=== PATIENT | female | born 1975 | race Caucasian/White ===

== ENCOUNTER → 2017-05-23 | Outpatient (CLI) | payer BC ==
--- NOTE | 2017-05-25 08:52 | MAM ---
EXAM DESCRIPTION: 3D Screening BILATERAL CLINICAL HISTORY: 42 yearsFemaleSCREENING . History of ovarian cancer. No breast cancer self or family. Postmenopausal. HRT five or more years ago.. COMPARISON: Diagnostic digital 2-D bilateral mammography 09/21/2015.. No prior reports available. TECHNIQUE: Bilateral CC and MLO projection full-field images, 3-D tomosynthesis digital mammographic technique. Also bilateral synthesized CC/ MLO full-field images. CAD not utilized. FINDINGS: The breast parenchymal density pattern is: Scattered areas of fibroglandular density. No skin thickening or nipple retraction intramammary lymph nodes. Right axillary node. No focal, stellate mass or density, focal asymmetry , and no suspicious microcalcifications bilaterally. Stable mammograms compared to prior study, taking into account differences in mammographic technique IMPRESSION: BI-RADS CATEGORY: 2 - BENIGN FINDINGS. FOLLOW UP: Routine digital bilateral screening, one year interval from May 2017 Written communication explaining the findings and follow-up, will be mailed to the patient and referring health care provider. According to the [employer], yearly mammograms are recommended starting at age 40 and continuing as long as a woman is in good health. Any breast change noted on a breast self-exam should be reported promptly to the patient's healthcare provider. Breast MRI is recommended for women with an approximately 20-25% or greater lifetime risk of breast cancer, including women with a strong family history of breast or ovarian cancer and women who have been treated for Hodgkin's disease. A negative mammographic report should not delay tissue diagnosis in patients with significant clinical history or physical findings. Extremely dense breast tissue limits the sensitivity of digital mammography. Electronically signed by: Osito Duong MD 05/25/2017 8:50 AM CDT
== END ==
LOC: MAMMO 16:00
PROVIDERS: ATTEND Nurse Practitioner Family
DX: Z12.31 Encounter for screening mammogram for malignant neoplasm of breast (principal)
CPT/HCPCS: 77063; G0202

== ENCOUNTER 2019-03-31 18:01 | Emergency (ER) | payer BC ==
[2019-03-31 18:16] VITALS: TEMP 97.8
--- NOTE | 2019-03-31 18:40 | RAD ---
EXAM DESCRIPTION: Wrist,Left 3 Views CLINICAL HISTORY: 44 years Female Fall COMPARISON: None TECHNIQUE: Three images of the left wrist were obtained. FINDINGS: Fractures distal radius. There is involvement of the articular surface. No fractures distal ulna. Erosive changes ulnar styloid. Intact carpal bones. IMPRESSION: Nondisplaced fractures distal radius. Electronically signed by: Hillary Richardson MD 03/31/2019 6:38 PM CDT
[2019-03-31] MEDS ORDERED: HYDROcodone 10MG/APAP 325MG 1 EA TAB PO ONE (18:47)
--- NOTE | 2019-03-31 18:51 | ED.PDOC ---
History of Present Illness - General Chief Complaint: Upper Extremity Injury Time Seen by Provider: 03/31/19 18:42 Source: patient Exam Limitations: no limitations - History of Present Illness Initial Comments: Patient presents with left wrist pain after FOSH. Pain is lateral, constant, throbbing, worse with movement, better with rest, no previous episodes. No other complaints. Timing/Duration: 1/2 hour Severity: moderate Improving Factors: rest Worsening Factors: movement Associated Symptoms: denies symptoms Allergies/Adverse Reactions: Allergies Penicillins Allergy (Verified 12/30/14 12:33) Home Medications: Ambulatory Orders ALPRAZolam [Xanax] 1 mg PO BEDTIME 12/30/14 Citalopram Hydrobromide [Celexa] 10 mg PO BEDTIME 12/30/14 Famotidine [Pepcid AC] 10 mg PO BEDTIME 12/30/14 HYDROcodone 10MG/APAP 325MG [[place] 10/325] 1 ea PO Q4H PRN 12/30/14 Lisinopril & Hydrochlorothiazi [Lisinopril/Hctz 20-12.5 mg] 1 tab PO BEDTIME 12/30/14 Meloxicam 15 mg PO BEDTIME 12/30/14 Nicotine [Nicoderm Cq] 21 mg TD DAILY 12/30/14 Ranitidine HCl 150 mg PO BEDTIME 12/30/14 Sulfa/Trimeth 800/160 (Ds) Tab [Bactrim DS] 1 ea PO BEDTIME 12/30/14 Doxycycline Hyclate 100 mg PO BID #20 tab 01/02/15 Levothyroxine Sodium [Synthroid] 0.025 mg PO 0700 #30 tab 01/02/15 Simvastatin 10 mg PO BEDTIME #30 tab 01/02/15 levoFLOXacin [Levaquin] 500 mg PO DAILY #10 tab 01/02/15 Ondansetron [Zofran Odt] 4 mg PO BID PRN #7 tab 09/15/15 Acetaminophen W/ Codeine [Tylenol W/ CODEINE #3] 1 ea PO Q6HRS PRN #15 03/31/19 Review of Systems - Review of Systems Constitutional: States: no symptoms reported EENTM: States: no symptoms reported Respiratory: States: no symptoms reported Cardiology: States: no symptoms reported Gastrointestinal/Abdominal: States: no symptoms reported Genitourinary: States: no symptoms reported Musculoskeletal: States: see HPI Skin: States: no symptoms reported Neurological: States: no symptoms reported Endocrine: States: no symptoms reported Hematologic/Lymphatic: States: no symptoms reported Past Medical History (General) - Patient Medical History Hx Seizures: Yes Hx Stroke: Yes Hx Asthma: Yes Hx Hypertension: Yes Hx Thyroid Disease: Yes Hx Diabetes: No Hx Gastroesophageal Reflux: Yes Hx Cancer: Yes - ovarian Hx Hepatitis C: No Hx MRSA: Yes MRSA Source:: Wound - Vaccination History Hx Tetanus, Diphtheria Vaccination: No Hx Influenza Vaccination: No - Social History Hx Tobacco Use: Yes Hx Alcohol Use: Yes - occ. Hx Physical Abuse: No Hx Emotional Abuse: No Hx Suspected Abuse: No Family Medical History - Family History Mother Hx Family Hypertension: Yes Hx Cardiac Disease: Yes Hx Family Diabetes: Yes Physical Exam - Physical Exam General Appearance: Alert Respiratory: lungs clear, normal breath sounds Cardiovascular/Chest: normal peripheral pulses, regular rate, rhythm Peripheral Pulses: radial,right: 2+, radial,left: 2+ Gastrointestinal/Abdominal: normal bowel sounds, non tender, soft Extremity: other - lateral left wrist is TTP with bulging deformity. Capillary refill less than 2 seconds at the nail beds. Full sensation throughout the entire left hand and wrist. Progress - Progress Progress: 03/31/19 19:49 Radiographs of the left wrist showed a non-displaced fracture of the left distal radius. Patient denied any current alcohol or drug use. Patient was given hydrocodone 10/325 po x one. Left arm splinted with a sugar tong splint and sling provided. Care instructions given. E.R. warnings given. Questions were elicited and answered. Patient voiced understanding and agreement with the plan. Departure - Departure Clinical Impression: Radius distal fracture Disposition: Discharge to Home or Self Care Condition: Good Departure Forms: ED Discharge - Pt. Copy, Patient Portal Self Enrollment Instructions: Radius Fracture (DC) Diet: resume usual diet Activity: other - do not use the left arm until told otherwise by a doctor. Referrals: CARMEN CHANG IV, NP [Primary Care Provider] - 1-2 Weeks Prescriptions: Acetaminophen W/ Codeine [Tylenol W/ CODEINE #3] 1 ea PO Q6HRS PRN #15 PRN Reason: Pain Home Medications: Ambulatory Orders ALPRAZolam [Xanax] 1 mg PO BEDTIME 12/30/14 Citalopram Hydrobromide [Celexa] 10 mg PO BEDTIME 12/30/14 Famotidine [Pepcid AC] 10 mg PO BEDTIME 12/30/14 HYDROcodone 10MG/APAP 325MG [[place] 10/325] 1 ea PO Q4H PRN 12/30/14 Lisinopril & Hydrochlorothiazi [Lisinopril/Hctz 20-12.5 mg] 1 tab PO BEDTIME 12/30/14 Meloxicam 15 mg PO BEDTIME 12/30/14 Nicotine [Nicoderm Cq] 21 mg TD DAILY 12/30/14 Ranitidine HCl 150 mg PO BEDTIME 12/30/14 Sulfa/Trimeth 800/160 (Ds) Tab [Bactrim DS] 1 ea PO BEDTIME 12/30/14 Doxycycline Hyclate 100 mg PO BID #20 tab 01/02/15 Levothyroxine Sodium [Synthroid] 0.025 mg PO 0700 #30 tab 01/02/15 Simvastatin 10 mg PO BEDTIME #30 tab 01/02/15 levoFLOXacin [Levaquin] 500 mg PO DAILY #10 tab 01/02/15 Ondansetron [Zofran Odt] 4 mg PO BID PRN #7 tab 09/15/15 Acetaminophen W/ Codeine [Tylenol W/ CODEINE #3] 1 ea PO Q6HRS PRN #15 03/31/19 Additional Instructions: Call Dr. Luevano's office in the morning and get an appointment for or monday. Return to the E.R. for numbness in the left hand or pale fingernails on the left hand.
[2019-03-31 19:57] VITALS: BP 130/80; O2SAT 97
== END 2019-03-31 20:00 | disposition home or self-care (01) ==
LOC: ER 18:01
DX: S52.502A Unspecified fracture of the lower end of left radius, initial encounter for closed fracture (principal); R56.9 Unspecified convulsions; J45.909 Unspecified asthma, uncomplicated; I10 Essential (primary) hypertension; E07.9 Disorder of thyroid, unspecified; K21.9 Gastro-esophageal reflux disease without esophagitis; Z85.43 Personal history of malignant neoplasm of ovary; Z79.899 Other long term (current) drug therapy; Z86.73 Personal history of transient ischemic attack (TIA), and cerebral infarction without residual deficits; Z88.0 Allergy status to penicillin; W18.30XA Fall on same level, unspecified, initial encounter; Y92.9 Unspecified place or not applicable

== ENCOUNTER → 2019-04-18 | Outpatient (CLI) | payer BC ==
--- NOTE | 2019-04-18 11:22 | RAD ---
PROVIDED CLINICAL HISTORY/REASON FOR EXAM: M25.532 Findings: Number of images: 3 Location: Left wrist No acute fracture or dislocation. Joint spaces are maintained. Soft tissues are unremarkable. The previously described nondisplaced fractures of the distal radius are less apparent. IMPRESSION: No evidence of acute process in the left wrist. Previously described nondisplaced fractures of the distal radius are less apparent, which may indicate healing. Electronically signed by: Chet Espinoza MD 04/18/2019 11:20 AM CDT
== END ==
LOC: RAD 08:15
PROVIDERS: ATTEND Orthopaedic Surgery
DX: S52.502D Unspecified fracture of the lower end of left radius, subsequent encounter for closed fracture with routine healing (principal)

== ENCOUNTER → 2019-05-09 | Outpatient (CLI) | payer BC ==
--- NOTE | 2019-05-09 08:40 | RAD ---
EXAM DESCRIPTION: Wrist,Left 3 Views CLINICAL HISTORY: 44 years, Female, FX DISTAL END OF RADIUS COMPARISON: None FINDINGS: Left wrist 3 x-ray views is positive for linear fracture of the epiphysis of the distal left radius extending into the radiocarpal joint which is unchanged in alignment compared to the previous study. Slight widening of the fracture line is thought to be resorption related to early stages of healing. Other bones in the field of view appear intact. Carpal relationships are well-maintained. Distal ulna appears intact. Normal metacarpals. No significant arthritic changes are observed. IMPRESSION: Unchanged alignment of fractured distal left radius. Electronically signed by: Long Hernandez MD 05/09/2019 8:39 AM CDT
== END ==
LOC: RAD 07:10
PROVIDERS: ATTEND Orthopaedic Surgery
DX: S52.502D Unspecified fracture of the lower end of left radius, subsequent encounter for closed fracture with routine healing (principal)

== ENCOUNTER → 2019-05-31 | Outpatient (CLI) | payer BC ==
--- NOTE | 2019-06-01 11:12 | RAD ---
EXAM DESCRIPTION: Wrist,Left 3 Views: CR/DR/XR CLINICAL HISTORY: 44 years Female CLOSED FX OF DISTAL END OF RADIUS COMPARISON: Left wrist 05/09/2019. TECHNIQUE: 3 VIEWS AP. Lateral. Oblique. The left wrist. Impression: Linear fracture extension into the radiolunate joint is less radiolucent and well-defined compared to the prior study. Fracture components are stable. Radiocarpal joint spaces are maintained. No abnormal fragments in the soft tissues. Electronically signed by: Osito Duong MD 06/01/2019 11:11 AM CDT
== END ==
LOC: RAD 07:26
PROVIDERS: ATTEND Orthopaedic Surgery
DX: S52.502D Unspecified fracture of the lower end of left radius, subsequent encounter for closed fracture with routine healing (principal)

== ENCOUNTER 2019-12-01 17:05 | Emergency (ER) | payer BC ==
[2019-12-01 17:32] VITALS: TEMP 98.7
[2019-12-01] MEDS ORDERED: SODIUM CHLORIDE 0.9% 1000ML 1,000 ML IVS ONE (17:43)
[2019-12-01] MEDS ORDERED: DICYCLOMINE HCL INJ 20 MG/2 ML AMP IM ONE (17:43)
--- NOTE | 2019-12-01 19:10 | CT ---
PROCEDURE: CT Abdomen and Pelvis With Intravenous Contrast CLINICAL INDICATION: The patient is 44 years old and is Female; pain TECHNIQUE: Axial computed tomography images of the abdomen and pelvis with intravenous contrast. Sagittal and coronal reformatted images were created and reviewed. This CT exam was performed using one or more of the following dose reduction techniques: automated exposure control, adjustment of the mA and/or kV according to patient size, and/or use of iterative reconstruction technique. DLP: 826 mGy*cm COMPARISON: None. FINDINGS: LUNG BASES: Bibasilar scarring and/or atelectasis. No focal consolidation. MEDIASTINUM: Small hiatal hernia. ABDOMEN: LIVER: Diffuse hepatic steatosis. GALLBLADDER AND BILE DUCTS: Prior cholecystectomy. No ductal dilation. PANCREAS: Unremarkable. No mass. No ductal dilation. SPLEEN: Unremarkable. No splenomegaly. ADRENALS: Unremarkable. No mass. KIDNEYS AND URETERS: Unremarkable. No solid mass. No hydronephrosis. STOMACH AND BOWEL: Epigastric postsurgical changes most suggestive of Jory-en-Y gastric bypass. No obstruction. No mucosal thickening. PELVIS: APPENDIX: Appendix is surgically absent. BLADDER: Bladder is decompressed. REPRODUCTIVE: Unremarkable as visualized. ABDOMEN and PELVIS: INTRAPERITONEAL SPACE: Unremarkable. No free air. No significant fluid collection. BONES/JOINTS: Levoscoliosis of the lumbar spine No acute fracture. No dislocation. SOFT TISSUES: Unremarkable. VASCULATURE: Unremarkable. No abdominal aortic aneurysm. LYMPH NODES: Unremarkable. No enlarged lymph nodes. IMPRESSION: 1. No acute abdominal or pelvic abnormality. 2. Epigastric postsurgical changes most suggestive of Jory-en-Y gastric bypass. No obstruction. 3. Diffuse hepatic steatosis. Electronically signed by: Chuckie Fu DO 12/01/2019 7:09 PM CDT
--- NOTE | 2019-12-01 19:30 | ED.PDOC ---
History of Present Illness - General Chief Complaint: Abdominal Pain Stated Complaint: L sided adbominal pain Time Seen by Provider: 12/01/19 17:40 - History of Present Illness Initial Comments: Pt had a gastric bypass surgery 5 weeks back , was doing good for 1 week then started having LUQ pain with some constipation , did take some otc meds for constipation got better initially but then again having LUQ pain and constipation. Past Medical History (General) - Patient Medical History Hx Seizures: Yes Hx Stroke: Yes - TIA Hx Asthma: Yes Hx of COPD: Yes Hx Cardiac Disorders: No Hx Hypertension: Yes Hx Thyroid Disease: Yes Hx Diabetes: No Hx Gastroesophageal Reflux: Yes Hx Cancer: Yes - Ovarian Hx Hepatitis C: No Hx MRSA: Yes MRSA Source:: Wound Surgical History: appendectomy, cancer surgery, cholecystectomy, gastric bypass, tonsillectomy, Hysterectomy, other - Vaccination History Hx Tetanus, Diphtheria Vaccination: No Hx Influenza Vaccination: No Hx Pneumococcal Vaccination: No - Social History Hx Tobacco Use: Yes Hx Alcohol Use: No Hx Substance Use: No Hx Substance Use Treatment: No Hx Depression: No Hx Physical Abuse: No Hx Emotional Abuse: No Hx Suspected Abuse: No - Female History Patient is a Female of Child Bearing Age (10 -59 yrs old): Yes Patient : No - Hyst Family Medical History - Family History Mother Living Status: Still Living Hx Family Hypertension: Yes Hx Cardiac Disease: Yes Hx Family Diabetes: Yes Physical Exam - Physical Exam General Appearance: Alert, Comfortable Eyes, Ears, Nose, Throat Exam: PERRL/EOMI Neck: non-tender, full range of motion, supple, normal inspection Respiratory: chest non-tender, lungs clear, normal breath sounds, no respiratory distress, no accessory muscle use Cardiovascular/Chest: regular rate, rhythm, no edema, no gallop, no JVD, no murmur Gastrointestinal/Abdominal: soft, no organomegaly, no pulsatile mass, tenderness - LUQ Back Exam: normal inspection Extremity: non-tender, normal inspection, no pedal edema Neurologic: no motor/sensory deficits, alert, normal mood/affect, oriented x 3 Lymphatic: no adenopathy Progress - Results/Orders Results/Orders: 12/01/19 17:41 Hold Metformin x 48Hrs [id number] Laboratory Results WBC 8.6 K/mm3 (4.8-10.8) 12/01/19 17:40 RBC 4.85 M/mm3 (4.20-5.40) 12/01/19 17:40 Hgb 14.4 gm/dL (12.0-16.0) 12/01/19 17:40 Hct 42.7 % (36.0-47.0) 12/01/19 17:40 MCV 88.1 fl (81.0-99.0) 12/01/19 17:40 MCH 29.8 pg (27.0-31.0) 12/01/19 17:40 MCHC 33.8 g/dL (33.0-37.0) 12/01/19 17:40 RDW 14.6 % (11.5-14.5) H 12/01/19 17:40 Plt Count 298 K/mm3 (130-400) 12/01/19 17:40 MPV 8.9 fl (7.40-10.4) 12/01/19 17:40 Absolute Neuts (auto) 5.60 K/uL (1.8-6.8) 12/01/19 17:40 Absolute Lymphs (auto) 2.30 K/uL (1.0-3.4) 12/01/19 17:40 Absolute Monos (auto) 0.50 K/uL (0.2-0.8) 12/01/19 17:40 Absolute Eos (auto) 0.10 K/uL (0.0-0.4) 12/01/19 17:40 Absolute Basos (auto) 0.10 K/uL (0.0-0.1) 12/01/19 17:40 Neutrophils % 64.6 % (42.0-78.0) 12/01/19 17:40 Lymphocytes % 26.6 % (20.0-50.0) 12/01/19 17:40 Monocytes % 6.2 % (2.0-9.0) 12/01/19 17:40 Eosinophils % 1.4 % (1.0-5.0) 12/01/19 17:40 Basophils % 1.2 % (0.0-2.0) 12/01/19 17:40 Sodium 138 mmol/L (135-145) 12/01/19 17:40 Potassium 3.3 mmol/L (3.6-5.0) L 12/01/19 17:40 Chloride 105 mmol/L (101-111) 12/01/19 17:40 Carbon Dioxide 23 mmol/L (21-31) 12/01/19 17:40 Anion Gap 13.3 (12-18) 12/01/19 17:40 BUN 9 mg/dL (7-18) 12/01/19 17:40 Creatinine 0.46 mg/dL (0.6-1.3) L 12/01/19 17:40 BUN/Creatinine Ratio 19.6 (10-20) 12/01/19 17:40 Random Glucose 89 mg/dL (70-105) 12/01/19 17:40 Serum Osmolality 273.8 mOsm/L (275-295) L 12/01/19 17:40 Calcium 9.0 mg/dL (8.4-10.2) 12/01/19 17:40 Total Bilirubin 0.4 mg/dL (0.2-1.0) 12/01/19 17:40 AST 12 IU/L (10-42) 12/01/19 17:40 ALT 10 IU/L (10-60) 12/01/19 17:40 Alkaline Phosphatase 83 IU/L (42-121) 12/01/19 17:40 Serum Total Protein 6.7 gm/dL (6.4-8.2) 12/01/19 17:40 Albumin 3.6 g/dl (3.2-5.5) 12/01/19 17:40 Globulin 3.1 gm/dL (2.3-3.5) 12/01/19 17:40 Albumin/Globulin Ratio 1.2 (1.1-1.9) 12/01/19 17:40 Lipase 23 U/L (22-51) 12/01/19 17:41 Departure - Departure Clinical Impression: Abdominal pain, Constipation Time of Disposition: 19:31 Disposition: Discharge to Home or Self Care Condition: Good Departure Forms: ED Discharge - Pt. Copy, Patient Portal Self Enrollment Instructions: DI for Abdominal Pain-Adult Diet: resume usual diet Activity: increase activity as tolerated, walking as tolerated Referrals: CARMEN CHANG IV, STRE[facility] COMMISSION[facility] [Primary Care Provider] - 1-2 Weeks Prescriptions: Dicyclomine HCl [Bentyl] 20 mg PO Q6H #12 tab Lactulose Syrup [Chronulac] 15 ml PO TID 5 Days ud Home Medications: Ambulatory Orders ALPRAZolam [Xanax] 1 mg PO BEDTIME 12/30/14 Citalopram Hydrobromide [Celexa] 10 mg PO BEDTIME 12/30/14 Famotidine [Pepcid AC] 10 mg PO BEDTIME 12/30/14 HYDROcodone 10MG/APAP 325MG [[place] 10/325] 1 ea PO Q4H PRN 12/30/14 Lisinopril & Hydrochlorothiazi [Lisinopril/Hctz 20-12.5 mg] 1 tab PO BEDTIME 12/30/14 Meloxicam 15 mg PO BEDTIME 12/30/14 Nicotine [Nicoderm Cq] 21 mg TD DAILY 12/30/14 Ranitidine HCl 150 mg PO BEDTIME 12/30/14 Sulfa/Trimeth 800/160 (Ds) Tab [Bactrim DS] 1 ea PO BEDTIME 12/30/14 Doxycycline Hyclate 100 mg PO BID #20 tab 01/02/15 Levothyroxine Sodium [Synthroid] 0.025 mg PO 0700 #30 tab 01/02/15 Simvastatin 10 mg PO BEDTIME #30 tab 01/02/15 levoFLOXacin [Levaquin] 500 mg PO DAILY #10 tab 01/02/15 Ondansetron [Zofran Odt] 4 mg PO BID PRN #7 tab 09/15/15 Acetaminophen W/ Codeine [Tylenol W/ CODEINE #3] 1 ea PO Q6HRS PRN #15 03/31/19 Dicyclomine HCl [Bentyl] 20 mg PO Q6H #12 tab 12/01/19 Lactulose Syrup [Chronulac] 15 ml PO TID 5 Days ud 12/01/19 Additional Instructions: Return to The ER if symptoms gets worse
[2019-12-01 19:54] VITALS: BP 143/97; O2SAT 96
== END 2019-12-01 19:54 | disposition home or self-care (01) ==
LOC: ER 17:05
DX: R10.12 Left upper quadrant pain (principal); K59.00 Constipation, unspecified; J44.9 Chronic obstructive pulmonary disease, unspecified; I10 Essential (primary) hypertension; E07.9 Disorder of thyroid, unspecified; K21.9 Gastro-esophageal reflux disease without esophagitis; Z98.84 Bariatric surgery status; Z90.49 Acquired absence of other specified parts of digestive tract; Z85.43 Personal history of malignant neoplasm of ovary; Z90.710 Acquired absence of both cervix and uterus; Z87.891 Personal history of nicotine dependence; Z79.899 Other long term (current) drug therapy
CPT/HCPCS: 74160; 80053; 83690; 85025; J0500; J7030